=== PATIENT | female | born 1965 | race Caucasian/White ===

== ENCOUNTER → 2016-05-13 | Day surgery (SDC) | payer OTHER ==
[2016-05-13 10:18] LABS: CREATININE 0.8 mg/dL (0.5-1.0)
[2016-05-13 10:19] LABS: POTASSIUM 4.4 mmol/L (3.5-5.1)
== END | disposition home or self-care (01) ==
LOC: FAS 08:46
PROVIDERS: Anesthesiology
DX: G56.01 Carpal tunnel syndrome, right upper limb (principal); I10 Essential (primary) hypertension; K21.9 Gastro-esophageal reflux disease without esophagitis; Z87.891 Personal history of nicotine dependence; Z79.899 Other long term (current) drug therapy; Z98.890 Other specified postprocedural states
CPT/HCPCS: 36415; 80048; 84703; 93005; J2405; J2704; J3010

== ENCOUNTER → 2020-04-24 | Day surgery (SDC) | payer OTHER ==
[~2020-04-24] VITALS: Ht 157.5 cm; Wt 90.7 kg
[~2020-04-24] MED LIST: ANTIVERT25 MG PO; ASPIRIN325 MG PO; CALCIUM 600 +1 EA10 PO; HYDRALAZINE25 MG PO; MOTRIN600 MG PO; NASACORT16.9 ML; OMEPRAZOLE40 MG PO; PERCOCET 5-3251 EACH PO; PROBIOTIC1 EAC1 PO; TOPROL XL 50 MG50 MG PO; ZYRTEC10 MG PO
[2020-04-24 06:50] LABS: HCT 42.3 % (37.0-47.0); MCH 28.5 pg (25.0-31.0); MCHC 33.1 g/dL (32.0-36.0); MCV 86.2 fL (78.0-100.0); MPV 9.8 fL (6.0-9.5); RBC 4.91 M/uL (4.20-5.40); RDW 14.3 % (11.5-14.0); WBC 11.1 K/uL (4.0-10.5)
[2020-04-24 07:08] LABS: CHLORIDE 103 mmol/L (98-107); CO2 (BICARBONATE) 24 mmol/L (21-32); CREATININE 1.04 mg/dL (0.51-0.95); GLUCOSE 92 mg/dL (74-106); POTASSIUM 3.8 mmol/L (3.5-5.1)
[2020-04-24 07:12] LABS: BUN 8 mg/dL (7-18)
== END | disposition home or self-care (01) ==
LOC: FAS 05:55
PROVIDERS: Anesthesiology
DX: S83.242A Other tear of medial meniscus, current injury, left knee, initial encounter (principal); M17.12 Unilateral primary osteoarthritis, left knee; I10 Essential (primary) hypertension; K21.9 Gastro-esophageal reflux disease without esophagitis; C44.90 Unspecified malignant neoplasm of skin, unspecified; Z87.891 Personal history of nicotine dependence
CPT/HCPCS: 36415; 80048; 93005; J1100; J1885; J2250; J2405; J2704; J3010; J7120